=== PATIENT | female | born 1985 | race Caucasian/White ===

== ENCOUNTER 2020-01-20 21:46 | Emergency (ER) | payer SELFPAY ==
[2020-01-20 22:12] VITALS: BP 151/95; PULSE 82; TEMP 98.2; BMI 44.8
[2020-01-20] MEDS ORDERED: ALBUTEROL SO4 2.5/IPRATROPIUM 0.5 INH SOL 3 ML VIAL.NEB. NEB ONE ×2 (22:21)
[2020-01-20] MEDS ORDERED: predniSONE 20 MG TABLET (UD) PO ONE (22:22)
[2020-01-20] MEDS ORDERED: predniSONE 20 MG TABLET (UD) ONE (22:26)
--- NOTE | 2020-01-20 22:50 | PDOC ---
Documentation entered by Lydia Acuña SCRIBE, acting as scribe for Deborah Germain MD. Deborah Germain MD: This documentation has been prepared by the tobiasibeDomenico Lincy, SCRIBE, under my direction and personally reviewed by me in its entirety. I confirm that the documentation accurately reflects all work, treatment, procedures, and medical decision making performed by me. History of Present Illness - General Chief Complaint: Asthma Stated Complaint: ASTHMA ATTACK Time Seen by Provider: 01/20/20 21:53 History Source: Patient Exam Limitations: No Limitations - History of Present Illness Initial Comments: 01/20/20 22:32 The patient is a 34-year-old female with a past medical history significant for asthma (no prior hospitalization) and anxiety who presents to the emergency department with an asthma exacerbation. The patient reports on Saturday she had an onset of sore/scratchy throat and congestion. The patient states she got some OTC medication (dayquil and halls), with symptom improvement. The patient reports shes been using her inhaler more frequently since this year started, and today the shortness of breath worsened. The patient reports associated symptoms of a nonproductive cough and denies fever. The patient reports a history of allergies and reports shes been jittery recently. Denies sick contact. Denies recent travel. Denies recent prednisone use. The patient reports a history of seasonal allergies and reports her bulldog is shedding alot recently. Allergies: seasonal allergies. PCP/nursing techn: Dr. Spencer ([address] [place] [id number]). Past History - Past Medical History Allergies/Adverse Reactions: Allergies Allergy/AdvReac Type Severity Reaction Status Date / Time No Known Allergies Allergy Verified 01/20/20 22:03 Home Medications: Ambulatory Orders Albuterol Sulfate Inhaler - [Ventolin Hfa Inhaler -] 1 - 2 inh PO Q4H PRN #1 inhaler 01/20/20 predniSONE [Deltasone -] 40 mg PO DAILY #8 tablet 01/20/20 Review of Systems - Review of Systems Able to Perform ROS?: Yes Comments:: 01/20/20 22:32 CONSTITUTIONAL: Pt denies Fever, Chills, weakness. HEENT: denies vision changes, sore throat RESPIRATORY: +cough and shortness of breath. Denies hemoptysis CARDIAC: denies chest pain, palpitations, lightheadedness, leg swelling ABD/GI: denies abd pain, nausea, vomiting, blood per rectum, melena, diarrhea : denies dysuria, frequency, discharge MSK: denies back pain, joint swelling SKIN: denies bruising, erythema, rash NEUROLOGICAL: denies headache, numbness, focal weakness, tingling, ataxia, weakness HEMATOLOGICAL: denies anemia, easy bruising, easy bleeding. *Physical Exam - Physical Exam 01/20/20 22:36 GENERAL: The patient is awake, alert, and fully oriented, in no acute distress. HEAD: Normal with no signs of trauma. EYES: Pupils equal, round and reactive to light, extraocular movements intact, sclera anicteric, conjunctiva clear with no pallor. ENT: Ears normal, nares patent, +Dry mucous membranes, no erythema, edema or exudate of the pharynx. NECK: Normal range of motion, supple without lymphadenopathy, JVD, or masses. LUNGS: +scattered expiratory wheezing on the left side, clear on the right side, moving air well. HEART: Regular rate and rhythm, normal S1 and S2 without murmur or rub. ABDOMEN: Soft/nontender/nondistended. BS wnl. EXTREMITIES: Normal range of motion, no edema. No clubbing or cyanosis. No cords, erythema, or tenderness. NEUROLOGICAL: Cranial nerves II through XII grossly intact. Normal speech, normal gait. PSYCH: Normal mood, normal affect. SKIN: Warm, Dry, normal turgor, no rashes or lesions noted. ED Progress Note - Progress Note Progress Note: As noted above, this 34-year-old woman presents with few day history of persistent wheezing. Patient had run out of oral medication and inhaler that were prescribed by her nursing techn and was using albuterol inhaler only. Upon checking by nursing staff, the inhaler that she was using today had completely emptied. Exam as noted. Patient was significantly better after 2 DuoNeb nebulizer treatments and 40 mg of prednisone by mouth. Refill for the patient's Ventolin inhaler as well as prescription for 4 more days of prednisone 40 mg daily sent to her pharmacy. Patient has been urged to follow-up with her nursing techn. She states that she should be able to get an appointment quickly with him. If she has worsening shortness of breath, persistent wheezing or high fever, she should return to the emergency room. Discharge - Discharge Information Problems reviewed: Yes Clinical Impression/Diagnosis: Asthma exacerbation Qualifiers: Asthma severity: moderate Asthma persistence: unspecified Qualified Code(s): J45.901 - Unspecified asthma with (acute) exacerbation Condition: Stable Disposition: HOME - Additional Discharge Information Prescriptions: predniSONE [Deltasone -] 40 mg PO DAILY #8 tablet Albuterol Sulfate Inhaler - [Ventolin Hfa Inhaler -] 1 - 2 inh PO Q4H PRN #1 inhaler PRN Reason: Wheezing - Follow up/Referral - Patient Discharge Instructions Patient Printed Discharge Instructions: Asthma -- Adult Additional Instructions: Ventolin inhaler, 1-2 puffs every 4 hours as needed for wheezing Prednisone 40mg daily for 4 more days( next dose tomorrow); take with food call your nursing techn tomorrow to arrange followup within 2 to 3 days Monitor your temperature and return to ER if you have fever, persistent wheezing, or productive cough - Post Discharge Activity
== END 2020-01-20 22:56 | disposition home or self-care (01) ==
LOC: FER 21:46
PROC: 3E0F7GC Introduction of Other Therapeutic Substance into Respiratory Tract, Via Natural or Artificial Opening (ICD-10-PCS; principal; 2020-01-20)
DX: J45.901 Unspecified asthma with (acute) exacerbation (principal); F41.9 Anxiety disorder, unspecified; R09.89 Other specified symptoms and signs involving the circulatory and respiratory systems; R05 Cough
CPT/HCPCS: 99283-25